=== PATIENT | female | born 1960 ===

== ENCOUNTER 2018-09-09 11:42 | Emergency (ER) | payer SELFPAY ==
--- OUTSIDE RECORDS SUMMARY | 2018-09-09 11:55 | XMS REPORT ---
:1960 [facility] Address [address] [place] [address] Care Team Providers Name Role Phone Unavailable Unavailable Unavailable Payers Payer Name Policy Type Policy Number Effective Date Expiration Date Problems This patient has no known problems. Allergies, Adverse Reactions, Alerts Allergy Allergy Status Severity Reaction(s) Onset Inactive Treating Comments Name Type Date Date Clinician No Known DA Active U 2018-04 Allergies 00:00:0 0 aspirin DA Active SV 2018-04 00:00:0 0 "BEE DA Active U 2018-04 STINGS" 00:00:0 0 Medications This patient has no known medications.
[2018-09-09] MEDS ORDERED: FAMOTIDINE 20 MG/2 ML VIAL IV ONE (12:20)
[2018-09-09] MEDS ORDERED: ONDANSETRON 4 MG/2 ML VIAL ONE (12:20)
[2018-09-09] MEDS ORDERED: NA CHLORIDE 0.9% 1,000 ML ONE (12:20)
[2018-09-09 12:30] LABS: Absolute Monocytes 1.3 K/uL (0.1-1.3); Absolute Neutrophil 9.5 K/uL (1.8-8.0); Eosinophils % 0.4 % (0-4.4); Hematocrit 45.1 % (36.0-45.0); Lymphocytes % 21.5 % (15.3-44.8); MPV 9.4 fL (7.6-11.3); Monocytes % 9.3 % (3.3-12.3); RBC Red Blood Cell Count 4.63 M/uL (3.86-4.86)
--- NOTE | 2018-09-09 12:36 | RAD REPORT ---
EXAM DESCRIPTION: RAD - Chest Single View - 09/09/2018 12:30 pm CLINICAL HISTORY: Left-sided chest pain COMPARISON: None. TECHNIQUE: AP portable chest image was obtained 1223 hours . FINDINGS: No peripheral mass or infiltrate. No failure or volume overload. Mild prominence of the in terstitial markings believed to be baseline. No mediastinal or hilar adenopathy suspected. Heart and vasculature are normal. No measurable pleural effusion and no pneumothorax. No acute bony abnormality seen. No acute aortic findings suspected. IMPRESSION: No acute cardiopulmonary process.
[2018-09-09 13:18] LABS: ALT/SGPT 22 U/L (12-78); AST/SGOT 17 U/L (15-37); Albumin 3.6 g/dL (3.4-5.0); Alkaline Phosphatase 121 U/L (45-117); BUN Blood Urea Nitrogen 9 mg/dL (7-18); Bicarbonate 27 mmol/L (21-32); Bilirubin Direct 0.2 mg/dL (0-0.2); Bilirubin Total 0.4 mg/dL (0.2-1.0); Glucose Level 104 mg/dL (74-106); Lipase 69 U/L (73-393); Magnesium 1.8 mg/dL (1.8-2.4); NT PRO-BNP 464 pg/mL (<125); Potassium 3.5 mmol/L (3.5-5.1); Sodium Level 144 mmol/L (136-145); Troponin (Emerg Dept Use Only) < 0.02 ng/mL (0.0-0.045)
[2018-09-09 13:37] LABS: Protime INR 0.97
[2018-09-09 14:38] LABS: Urine Blood TRACE (NEG); Urine Glucose NEGATIVE (NEG); Urine Protein NEGATIVE (NEG); Urine Specific Gravity 1.015 (1.005-1.030)
[2018-09-09 14:38] LABS: Urine Specific Gravity 1.015 (1.005-1.030)
--- NOTE | 2018-09-09 15:07 | RAD REPORT ---
EXAM DESCRIPTION: CT - Chest Abdomen Pelvis W Cont - 09/09/2018 2:38 pm CLINICAL HISTORY: Left-sided chest and abdomen pain, cough and congestion, prior splenectomy and cho lecystectomy COMPARISON: None. TECHNIQUE: Following dynamic enhancement using 100 milliliters nonionic IV contrast, axial imaging o f the chest, abdomen and pelvis was performed. Biphasic technique was utilized through the abdomen. Oral contrast was administered. All CT scans are performed using dose optimization technique as appropriate and may include automated exposure control or mA/KV adjustment according to patient size. FINDINGS: Lungs are clear of mass and infiltrate. No pleural effusion, pleural thickening or pneumot horax. No significant aortic or pulmonary arterial tree finding. Mediastinal and hilar regions show n o mass or abnormal lymphadenopathy. No chest wall mass or axillary lymphadenopathy. No acute or destr uctive rib lesion. No suspicious findings in the subcutaneous fatty tissues. Liver shows no suspicious findings. No pancreatic or peripancreatic abnormality identified. Gallbladd er is absent. No abnormal biliary tree dilatation. Splenectomy surgical changes are noted. There is a remnant or accessory splenic nodules present. Symmetric renal function is seen with no mass or hydro nephrosis. No adrenal abnormalities. Urinary bladder is mostly contracted limiting assessment. No bladder calculus. Uterus and ovaries talha w no suspicious findings. No dilated bowel loops or focal bowel wall thickening. Minimal left-sided colonic diverticulosis pres ent without diverticulitis. No acute GI process seen. Disc and bony degenerative changes are present. No acute or destructive process seen. No significant vascular findings. IMPRESSION: CT chest, abdomen and pelvis imaging shows no significant or suspicious finding.Full fin dings detailed in the body of the report.
[2018-09-09] MEDS ORDERED: CLOPIDOGREL 75 MG TABLET ONE (16:12)
[2018-09-09] MEDS ORDERED: ACETAMINOPHEN 500 MG TAB ONE (16:12)
--- NOTE | 2018-09-09 16:22 | ER ---
Nurse's Notes [facility] Name: Teressa Ya Age: 57 yrs Sex: Female : 1960 Arrival Date: 09/09/2018 Time: 11:46 Bed 3 Private MD: Diagnosis: Chest pain, unspecified;Diarrhea, unspecified;Hypertensive heart disease Presentation: 09/09 11:49 Presenting complaint: Patient states: left sided/midsternal aching/sharp chest pain sv that radiates down the left arm, SOB, left hand cramping, "feet on fire." fatigue, cough, congestion x 1 day. Transition of care: patient was not received from another setting of care. Onset of symptoms was September 08, 2018. Care prior to arrival: None. 11:49 Method Of Arrival: Wheelchair sv 11:49 Acuity: MARLENY 2 sv 11:51 Note Pt reports that her is in ICU right now and has C.diff, believes she may sv have it as well. 12:00 Risk Assessment: Do you want to hurt yourself or someone else? Patient reports no hb desire to harm self or others. Initial Sepsis Screen: Does the patient meet any 2 criteria? No. Patient's initial sepsis screen is negative. Does the patient have a suspected source of infection? No. Patient's initial sepsis screen is negative. Historical: - Allergies: 11:51 NSAIDS; sv - PMHx: 11:51 Lupus; Hypertension; sv - PSHx: 11:51 Spleenectomy; Cholecystectomy; ectopic ; sv - Immunization history:: Adult Immunizations up to date. - Social history:: Smoking status: Patient/guardian denies using tobacco. - Ebola Screening: : No symptoms or risks identified at this time. Screenin:00 Abuse screen: Denies threats or abuse. Denies injuries from another. Nutritional hb screening: No deficits noted. Tuberculosis screening: No symptoms or risk factors identified. Fall Risk None identified. Assessment: 12:00 General: Appears in no apparent distress. uncomfortable, Behavior is cooperative, hb anxious. Pain: Complains of pain in chest Pain radiates to left arm Pain currently is 10 out of 10 on a pain scale. Pain began 2-3 days ago. Neuro: Level of Consciousness is awake, alert, obeys commands, Oriented to person, place, time, situation. Cardiovascular: Heart tones S1 S2 present Capillary refill < 3 seconds Patient's skin is warm and dry. Respiratory: Airway is patent Respiratory effort is even, unlabored, Respiratory pattern is regular, symmetrical, Breath sounds are clear bilaterally. GI: No signs and/or symptoms were reported involving the gastrointestinal system. : No signs and/or symptoms were reported regarding the genitourinary system. EENT: No signs and/or symptoms were reported regarding the EENT system. Derm: Skin is intact, is healthy with good turgor. Musculoskeletal: No signs and/or symptoms reported regarding the musculoskeletal system. 13:00 Reassessment: Patient appears in no apparent distress at this time. No changes from hb previously documented assessment. Patient and/or family updated on plan of care and expected duration. Pain level reassessed. Patient is alert, oriented x 3, equal unlabored respirations, skin warm/dry/pink. 14:00 Reassessment: Patient appears in no apparent distress at this time. No changes from hb previously documented assessment. Patient and/or family updated on plan of care and expected duration. Pain level reassessed. Patient is alert, oriented x 3, equal unlabored respirations, skin warm/dry/pink. 15:00 Reassessment: Patient appears in no apparent distress at this time. No changes from hb previously documented assessment. Patient and/or family updated on plan of care and expected duration. Pain level reassessed. Patient is alert, oriented x 3, equal unlabored respirations, skin warm/dry/pink. 16:00 Reassessment: Patient appears in no apparent distress at this time. No changes from hb previously documented assessment. Patient and/or family updated on plan of care and expected duration. Pain level reassessed. Patient is alert, oriented x 3, equal unlabored respirations, skin warm/dry/pink. Vital Signs: 11:51 BP 166 / 88; Pulse 117; Resp 20; Temp 98.3(O); Pulse Ox 98% ; Weight 52.16 kg; Height 5 sv ft. 5 in. (165.10 cm); Pain 10/10; 13:00 BP 129 / 83; Pulse 98; Resp 18; Pulse Ox 97% on R/A; hb 14:00 BP 174 / 92; Pulse 81; Resp 18; Pulse Ox 99% on R/A; hb 15:00 BP 156 / 86; Pulse 80; Resp 16; Pulse Ox 99% on R/A; hb 11:51 Body Mass Index 19.14 (52.16 kg, 165.10 cm) sv ED Course: 11:46 Patient arrived in ED. tw3 11:50 Triage completed. sv 11:51 Arm band placed on. sv 11:57 Lan Vale PA is PHCP. cp 11:57 Cy Carolina MD is Attending Physician. cp 12:00 Patient has correct armband on for positive identification. Placed in gown. Bed in low hb position. Call light in reach. Side rails up X 1. child monitor on. Pulse ox on. NIBP on. 12:00 Patient maintains SpO2 saturation greater than 95% on room air. hb 12:14 Sulema Law, SUSANA is Primary Nurse. hb 12:20 Inserted saline lock: 20 gauge in right antecubital area, using aseptic technique. pc1 12:30 X-ray completed. Portable x-ray completed in exam room. Patient tolerated procedure mh1 well. 12:31 XRAY Chest (1 view) In Process Unspecified. EDMS 12:47 EKG done, by weld technician. reviewed by Lan SARGENT. at1 14:20 Urine collected: clean catch specimen, clear. dh3 14:38 CT Chest, Abdomen, Pelvis - W/Contrast: no oral contrast In Process Unspecified. EDMS 14:38 CT completed. Patient tolerated procedure well. Patient moved to CT. Patient moved back or from [place]. 16:20 Evelyn Virk MD is Hospitalizing Provider. cp 16:30 No provider procedures requiring assistance completed. IV discontinued, intact, hb bleeding controlled, No redness/swelling at site. Pressure dressing applied. 16:37 Jairo Araujo MD is Referral Physician. cp Administered Medications: 12:15 Drug: NS 0.9% 1000 ml Route: IV; Rate: 1 bolus; Site: right antecubital; hb 13:33 Follow up: Response: No adverse reaction; IV Status: Completed infusion hb 12:15 Drug: Zofran 4 mg Route: IVP; Site: right antecubital; hb 13:00 Follow up: Response: No adverse reaction hb 12:15 Drug: Pepcid 20 mg Route: IVP; Site: right antecubital; hb 13:30 Follow up: Response: No adverse reaction hb 14:44 Drug: NS 0.9% 1000 ml Route: IV; Rate: 100 ml/hr; Site: right antecubital; hb 16:07 Drug: Tylenol 1000 mg Route: PO; pc1 16:44 Follow up: Response: No adverse reaction ph 16:07 Drug: PlaVIX 75 mg Route: PO; pc1 16:44 Follow up: Response: No adverse reaction ph 16:43 Not Given (Left AMA): morphine 2 mg IVP once; if pain continues ph Outcome: 16:21 Decision to Hospitalize by Provider. cp 16:30 Discharged to home ambulatory, with family. hb 16:30 Condition: stable 16:30 Discharge instructions given to patient, family, Instructed on discharge instructions, follow up and referral plans. Demonstrated understanding of instructions, follow-up care, medications. 16:44 Patient left the ED. ph Signatures: Dispatcher [employer] EDMS Lucy Ha RN RN Jacqueline Blum mh1 Thuy Rao, end trimmer EKG [facility] Nicolle Lynn RN RN Lan Vale PA PA cp Baxter, Heather, RN RN Jean Marie Lopez, Jammie tw3 Yusra Casanova 3 Manas Luque pc1 Corrections: (The following items were deleted from the chart) 12:14 11:49 Presenting complaint: Patient states: left sided/midsternal aching/sharp chest sv pain, SOB, left hand cramping, "feet on fire." fatigue, cough, congestion x 1 day. sv
--- NOTE | 2018-09-09 16:22 | EDPHYS ---
Physician Documentation [facility] Name: Teressa Ya Age: 57 yrs Sex: Female : 1960 Arrival Date: 09/09/2018 Time: 11:46 Bed 3 Private MD: ED Physician Cy Carolina HPI: 09/09 12:07 This 57 yrs old Female presents to ER via Wheelchair with complaints of Chest Pain, Arm cp Pain. 12:08 The patient or guardian reports chest pain that is located primarily in the anterior cp chest wall, left. Onset: yesterday. The pain radiates to the left arm. The chest pain is described as aching, sharp. 12:10 The patient presents to the emergency department with nausea, that is moderate, cp vomiting, that is intermittent, diarrhea, that is intermittent, abdominal pain, of the abdomen diffusely, described as achy, and does not radiate, started 5 days ago. 12:10 Possible causes: sick contacts, by a significant other, hospitalized for c-dif. cp Historical: - Allergies: 11:51 NSAIDS; sv - PMHx: 11:51 Lupus; Hypertension; sv - PSHx: 11:51 Spleenectomy; Cholecystectomy; ectopic ; sv - Immunization history:: Adult Immunizations up to date. - Social history:: Smoking status: Patient/guardian denies using tobacco. - Ebola Screening: : No symptoms or risks identified at this time. ROS: 12:10 Constitutional: Negative for body aches, chills, fever, poor PO intake. cp 12:10 Eyes: Negative for injury, pain, redness, and discharge. cp 12:10 ENT: Negative for drainage from ear(s), ear pain, sore throat, difficulty swallowing, difficulty handling secretions. 12:10 Cardiovascular: Negative for chest pain, edema, palpitations. 12:10 Respiratory: Positive for cough, with no reported sputum, Negative for shortness of breath, wheezing. 12:10 Abdomen/GI: Positive for abdominal pain, nausea, vomiting, diarrhea, Negative for constipation, black/tarry stool, rectal bleeding. 12:10 Back: Negative for pain at rest, pain with movement, radiated pain. 12:10 : Negative for urinary symptoms. 12:10 Skin: Negative for cellulitis, rash. 12:10 Neuro: Negative for altered mental status, headache, numbness, weakness. 12:10 All other systems are negative. Exam: 12:10 ECG was reviewed by the Attending Physician. cp 12:15 Constitutional: The patient appears in no acute distress, alert, awake, cp non-diaphoretic, non-toxic, well developed, well nourished. 12:15 Head/Face: Normocephalic, atraumatic. Eyes: Pupils equal round and reactive to light, cp extra-ocular motions intact. Lids and lashes normal. Conjunctiva and sclera are non-icteric and not injected. Cornea within normal limits. Periorbital areas with no swelling, redness, or edema. ENT: Nares patent. No nasal discharge, no septal abnormalities noted. Tympanic membranes are normal and external auditory canals are clear. Oropharynx with no redness, swelling, or masses, exudates, or evidence of obstruction, uvula midline. Mucous membranes moist. Neck: Trachea midline, no thyromegaly or masses palpated, and no cervical lymphadenopathy. Supple, full range of motion without nuchal rigidity, or vertebral point tenderness. No Meningismus. Chest/axilla: Normal chest wall appearance and motion. Nontender with no deformity. No lesions are appreciated. 12:15 Cardiovascular: Rate: tachycardic, Rhythm: regular, Heart sounds: murmur, not appreciated, Edema: is not appreciated, JVD: is not appreciated. 12:15 Respiratory: the patient does not display signs of respiratory distress, Respirations: normal, no use of accessory muscles, no retractions, no splinting, no tachypnea, labored breathing, is not present, Breath sounds: are clear throughout, no decreased breath sounds, no stridor, no wheezing. 12:15 Abdomen/GI: Inspection: abdomen appears normal, Bowel sounds: active, all quadrants, Palpation: soft, in all quadrants, mild abdominal tenderness, in all quadrants, rebound tenderness, is not appreciated, involuntary guarding, is not appreciated. 12:15 Back: pain, is absent, ROM is normal. 12:15 Skin: cellulitis, is not appreciated, no rash present. 12:15 Neuro: Orientation: to person, place \T\ time. Mentation: is normal, Cerebellar function: is grossly normal, Motor: moves all fours, strength is normal, Sensation: is normal. Vital Signs: 11:51 BP 166 / 88; Pulse 117; Resp 20; Temp 98.3(O); Pulse Ox 98% ; Weight 52.16 kg; Height 5 sv ft. 5 in. (165.10 cm); Pain 10/10; 13:00 BP 129 / 83; Pulse 98; Resp 18; Pulse Ox 97% on R/A; hb 14:00 BP 174 / 92; Pulse 81; Resp 18; Pulse Ox 99% on R/A; hb 15:00 BP 156 / 86; Pulse 80; Resp 16; Pulse Ox 99% on R/A; hb 11:51 Body Mass Index 19.14 (52.16 kg, 165.10 cm) sv MDM: 12:02 Patient medically screened. cp 16:19 The patient was not given aspirin in the Emergency Department. Not indicated due to cp patient's past medical history. Data reviewed: vital signs, nurses notes, lab test result(s), EKG, radiologic studies, CT scan, plain films. 16:35 Refusal of service: The patient/guardian displays adequate decision making capability cp and despite a detailed discussion of alternatives, benefits, risks, and consequences refuses: Admission to the hospital for further work-up and treatment. 16:35 ED course: Patient reports she is unable to contact teenage daughter and is worried cp about her whereabouts. Patient refuses admission at this time for chest pain. 09/09 12:05 Order name: Basic Metabolic Panel; Complete Time: 14:23 cp 09/09 14:24 Interpretation: Normal except: CL 111; GFR 73; CA 8.4. cp 09/09 12:05 Order name: CBC with Diff; Complete Time: 12:55 cp 09/09 12:55 Interpretation: Normal except: WBC 14.0; HGB 15.5; HCT 45.1; NEUT A 9.5. cp 09/09 12:05 Order name: LFT's; Complete Time: 14:23 cp 09/09 12:05 Order name: Magnesium; Complete Time: 14:23 cp 09/09 12:05 Order name: NT PRO-BNP; Complete Time: 14:23 cp 09/09 12:05 Order name: PT-INR; Complete Time: 14:23 cp 09/09 12:05 Order name: Troponin (emerg Dept Use Only); Complete Time: 14:23 cp 09/09 12:05 Order name: Lipase; Complete Time: 14:23 cp 09/09 12:05 Order name: Blood Culture Adult (2) cp 09/09 12:05 Order name: Procalcitonin; Complete Time: 14:23 cp 09/09 12:05 Order name: Influenza Screen (a \T\ B); Complete Time: 12:55 cp 09/09 12:05 Order name: Lactate; Complete Time: 14:23 cp 09/09 12:43 Order name: D-Dimer; Complete Time: 14:23 EDMS 09/09 12:05 Order name: XRAY Chest (1 view); Complete Time: 12:55 cp 09/09 14:25 Order name: CT Chest, Abdomen, Pelvis - W/Contrast: no oral contrast; Complete Time: cp 15:33 09/09 14:29 Order name: Urine Dipstick--Ancillary (enter results); Complete Time: 15:33 kj1 09/09 14:31 Order name: Urine --Ancillary (enter results); Complete Time: 15:33 kj1 09/09 11:58 Order name: EKG; Complete Time: 11:58 sv 09/09 11:58 Order name: EKG - Nurse/Tech; Complete Time: 12:15 sv 09/09 12:05 Order name: Cardiac monitoring; Complete Time: 12:16 cp 09/09 12:05 Order name: IV Saline Lock; Complete Time: 12:16 cp 09/09 12:05 Order name: Labs collected and sent; Complete Time: 12:15 cp 09/09 12:05 Order name: O2 Per Protocol; Complete Time: 12:15 cp 09/09 12:05 Order name: O2 Sat Monitoring; Complete Time: 12:15 cp 09/09 12:05 Order name: Urine Dipstick-Ancillary (obtain specimen); Complete Time: 14:37 cp 09/09 12:05 Order name: Urine Test (obtain specimen); Complete Time: 14:37 cp 09/09 12:45 Order name: Labs - recollect needed; Complete Time: 13:10 bd 09/09 16:03 Order name: EKG; Complete Time: 16:03 cp 09/09 16:03 Order name: EKG - Nurse/Tech cp EC:10 Rate is 102 beats/min. Rhythm is regular. [place] interval is normal. QRS interval is cp normal. QT interval is normal. T waves are Inverted in lead V2. Interpreted by me. Reviewed by me. Administered Medications: 12:15 Drug: NS 0.9% 1000 ml Route: IV; Rate: 1 bolus; Site: right antecubital; hb 13:33 Follow up: Response: No adverse reaction; IV Status: Completed infusion hb 12:15 Drug: Zofran 4 mg Route: IVP; Site: right antecubital; hb 13:00 Follow up: Response: No adverse reaction hb 12:15 Drug: Pepcid 20 mg Route: IVP; Site: right antecubital; hb 13:30 Follow up: Response: No adverse reaction hb 14:44 Drug: NS 0.9% 1000 ml Route: IV; Rate: 100 ml/hr; Site: right antecubital; hb 16:07 Drug: Tylenol 1000 mg Route: PO; pc1 16:44 Follow up: Response: No adverse reaction ph 16:07 Drug: PlaVIX 75 mg Route: PO; pc1 16:44 Follow up: Response: No adverse reaction ph 16:43 Not Given (Left AMA): morphine 2 mg IVP once; if pain continues ph Disposition: 09/10 06:53 Co-signature as Attending Physician, Cy Carolina MD I agree with the assessment and dc plan of care. Disposition: 09/09/18 16:38 Patient has left against medical advice. Impression: Chest pain, unspecified, Diarrhea, unspecified, Hypertensive heart disease. - Patients states they are going to Home. - Condition is Stable. - Discharge Instructions: Nonspecific Chest Pain, Diarrhea, Adult, How to Take Your Blood Pressure, [id number], Managing Your Hypertension. Follow up: Jairo Araujo MD; When: Tomorrow; Reason: chest pain. - Problem is new. - Symptoms have improved. Signatures: Dispatcher [employer] EDMS Natali Martínez Stephanie, RN RN sv Hall, Patricia, RN RN ph Lan Vale PA PA cp Baxter, Heather, RN RN hb Appiah, William, MD MD wa Cantu, Patrick pc1 Corrections: (The following items were deleted from the chart) 09/09 12:43 12:13 D-DIMER+COAG.LAB.BRZ ordered. EDMS EDMS 14:24 14:23 Normal except: CL 111; GFR 73. cp cp 15:41 15:39 Abdomen Pelvis W Con+CT.RAD.BRZ ordered. EDMS EDMS 16:37 16:21 Hospitalization Ordered by Evelyn Virk MD for Observation. Preliminary cp diagnosis is Chest pain, unspecified; Diarrhea, unspecified. Bed requested for Telemetry/MedSurg (observation). Status is Observation. Condition is Stable. Problem is new. Symptoms have improved. UTI on Admission? No. cp 16:44 16:38 09/09/2018 16:38 Patients has left against medical advice. Impression: Chest ph pain, unspecified; Diarrhea, unspecified; Hypertensive heart disease. Patient states they are going to Home. Condition is Stable. Follow up: Jairo Araujo; When: Tomorrow; Reason: chest pain. Problem is new. Symptoms have improved. cp
[2018-09-09] MEDS ORDERED: NA CHLORIDE 0.9% 1,000 ML IV SCH (17:00)
--- NOTE | 2018-09-09 20:19 | EKG ---
Test Date: 2018-09-09 Test Time: 16:09:15 Pinion Staker: BOBBY MEASUREMENT RESULTS: Intervals: Rate: 71 NC: 146 QRSD: 68 QT: 400 QTc: 434 [place]: P: 71 NC: 146 QRS: 69 T: 58 INTERPRETIVE STATEMENTS: Normal sinus rhythm Right atrial enlargement Borderline ECG Compared to ECG 09/09/2018 12:04:40 Sinus tachycardia no longer present T-wave abnormality no longer present Electronically Signed On 09-09-18 20:18:27 CDT by Jairo Araujo
--- NOTE | 2018-09-09 20:20 | EKG ---
Test Date: 2018-09-09 Test Time: 12:04:40 Suction Worker: HUSEYIN MEASUREMENT RESULTS: Intervals: Rate: 102 FL: 142 QRSD: 58 QT: 360 QTc: 469 [place]: P: 56 FL: 142 QRS: 46 T: 55 INTERPRETIVE STATEMENTS: Sinus tachycardia Right atrial enlargement Nonspecific T wave abnormality Abnormal ECG No previous ECG available for comparison Electronically Signed On 09-09-18 20:20:07 CDT by Jairo Araujo
== END 2018-09-09 16:44 | disposition left against medical advice (07) ==
LOC: ER 11:42
DX: R07.9 Chest pain, unspecified (principal); R19.7 Diarrhea, unspecified; I11.9 Hypertensive heart disease without heart failure; I10 Essential (primary) hypertension; Z88.6 Allergy status to analgesic agent
CPT/HCPCS: 36415; 71045; 71260; 74177; 80048; 80076; 81003; 81025; 83605; 83690; 83735; 83880; 84145; 84484; 85025; 85379; 85610; 87040; 87804; 93005; 96361; 96374; 96375; 99285; J2405; J7030; Q9967

== ENCOUNTER 2018-09-09 18:51 | Observation (INO) | payer SELFPAY ==
--- OUTSIDE RECORDS SUMMARY | 2018-09-09 18:52 | XMS REPORT ---
:1960 [facility] Address [address] [place] [address] [address]. Dela [address] [place] [address] Care Team Providers Name Role Phone Unavailable [...]
[2018-09-09 22:18] LABS: Absolute Lymphocytes (CBC) 3.8 K/uL (0.7-4.9); Basophils % 1.5 % (0-1.3); Hematocrit 41.1 % (36.0-45.0); Lymphocytes % 37.6 % (15.3-44.8); MPV 9.3 fL (7.6-11.3); Monocytes % 10.3 % (3.3-12.3); RBC Red Blood Cell Count 4.17 M/uL (3.86-4.86)
[2018-09-09] MEDS ORDERED: NA CHLORIDE 0.9% 1,000 ML ONE (22:18)
[2018-09-09] MEDS ORDERED: METOPROLOL TAR 25 MG TAB ONE (22:18)
[2018-09-09] MEDS ORDERED: MORPHINE 2 MG/ML SYR ONE (22:18)
[2018-09-09] MEDS ORDERED: NA CHLORIDE 0.9% 500 ML ONE (22:18)
[2018-09-09 22:19] LABS: Protime INR 0.95
[2018-09-09 22:32] LABS: ALT/SGPT 23 U/L (12-78); AST/SGOT 20 U/L (15-37); Albumin 3.9 g/dL (3.4-5.0); Alkaline Phosphatase 125 U/L (45-117); BUN Blood Urea Nitrogen 10 mg/dL (7-18); Bicarbonate 30 mmol/L (21-32); Bilirubin Direct 0.1 mg/dL (0-0.2); Bilirubin Total 0.4 mg/dL (0.2-1.0); Glucose Level 97 mg/dL (74-106); Magnesium 1.9 mg/dL (1.8-2.4); NT PRO-BNP 438 pg/mL (<125); Potassium 3.8 mmol/L (3.5-5.1); Protein, Total 7.3 g/dL (6.4-8.2); Sodium Level 146 mmol/L (136-145); Troponin (Emerg Dept Use Only) < 0.02 ng/mL (0.0-0.045)
--- NOTE | 2018-09-09 23:13 | EDPHYS ---
Physician Documentation [facility] Name: Teressa Ya Age: 57 yrs Sex: Female : 1960 Arrival Date: 09/09/2018 Time: 19:11 Bed 13 Private MD: ED Physician Jaya Desai HPI: 09/09 21:05 This 57 yrs old Female presents to ER via Ambulatory with complaints of Chest Pain, Arm cp Pain. 21:05 The patient or guardian reports chest pain that is located primarily in the anterior cp chest wall, left. 21:05 Onset: yesterday. The pain radiates to the left arm. The chest pain is described as cp aching, sharp. Patient returns to Ed after leaving earlier today AMA with continued complaints of chest pain. 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 - Social history:: Smoking status: Patient uses tobacco products, smokes one-half pack cigarettes per day. - Ebola Screening: : No symptoms or risks identified at this time. ROS: 21:12 Constitutional: Negative for body aches, chills, fever, poor PO intake. cp 21:12 Eyes: Negative for injury, pain, redness, and discharge. cp 21:12 ENT: Negative for drainage from ear(s), ear pain, sore throat, difficulty swallowing, difficulty handling secretions. 21:12 Cardiovascular: Positive for chest pain, of the anterior aspect of left upper chest, Negative for edema, palpitations. 21:12 Respiratory: Positive for cough, with no reported sputum, shortness of breath, Negative for wheezing. 21:12 Abdomen/GI: Positive for vomiting, diarrhea, Negative for constipation, black/tarry stool. 21:12 Back: Negative for pain at rest, pain with movement, radiated pain. 21:12 : Negative for urinary symptoms. 21:12 Skin: Negative for cellulitis, rash. 21:12 Neuro: Negative for altered mental status, headache, numbness, syncope, weakness. 21:12 All other systems are negative. Exam: 21:20 Constitutional: The patient appears in no acute distress, alert, awake, cp non-diaphoretic, non-toxic, well developed, well nourished. 21:20 Head/Face: Normocephalic, atraumatic. cp 21:20 Eyes: Periorbital structures: appear normal, Conjunctiva: normal, no exudate, no injection, Sclera: no appreciated abnormality, Lids and lashes: appear normal, bilaterally. 21:20 ENT: External ear(s): are unremarkable, Nose: is normal, Mouth: is normal, Posterior pharynx: is normal, airway is patent, no erythema, no exudate. 21:20 Neck: ROM/movement: is normal, is supple, without pain, no range of motions limitations, no nuchal rigidity. 21:20 Chest/axilla: Inspection: normal, Palpation: is normal, no crepitus, no tenderness. 21:20 Cardiovascular: Rate: normal, Rhythm: regular, Pulses: Pulses are 2+ in right radial artery and left radial artery. Edema: is not appreciated, JVD: is not appreciated. 21:20 Respiratory: the patient does not display signs of respiratory distress, Respirations: normal, no use of accessory muscles, no retractions, no splinting, no tachypnea, labored breathing, is not present, Breath sounds: are clear throughout, no decreased breath sounds, no stridor, no wheezing. 21:20 Abdomen/GI: Inspection: abdomen appears normal, Bowel sounds: active, all quadrants, Palpation: abdomen is soft and non-tender, in all quadrants, rebound tenderness, is not appreciated, voluntary guarding, is not appreciated, involuntary guarding, is not appreciated. 21:20 Back: pain, is absent, ROM is normal. 21:20 Musculoskeletal/extremity: Exam is negative for decreased range of motion, deformity, injury. 21:20 Skin: no rash present. 21:20 Neuro: Orientation: to person, place \T\ time. Mentation: is normal, Cerebellar function: is grossly normal, Motor: moves all fours, strength is normal, Sensation: is normal, Gait: is steady. 23:13 ECG was reviewed by the Attending Physician. cp Vital Signs: 19:23 BP 176 / 90; Pulse 91; Resp 18; Temp 98(O); Pulse Ox 100% on R/A; Weight 52.16 kg; lp1 Height 5 ft. 5 in. (165.10 cm); Pain 8/10; 21:45 BP 127 / 99; Pulse 68; Resp 21; Pulse Ox 99% ; aj1 22:49 BP 179 / 80; Pulse 85; Resp 18; Pulse Ox 99% on R/A; aj1 23:03 BP 166 / 89; Pulse 70; Resp 18; Pulse Ox 96% on R/A; Pain 5/10; lp1 09/10 01:12 BP 166 / 79; Pulse 67; Resp 23; Temp 98.4(O); Pulse Ox 98% on R/A; lp1 09/09 19:23 Body Mass Index 19.14 (52.16 kg, 165.10 cm) lp1 MDM: 09/09 21:04 Patient medically screened. cp 21:15 Differential diagnosis: acute myocardial infarction, acute pericarditis, chest wall cp pain, pleurisy, pneumonia, pneumothorax, stable angina, unstable angina. 23:10 Data reviewed: vital signs, nurses notes, lab test result(s), EKG, I have discussed the cp patient's presentation/case with the attending Emergency Department Physician; and as a result, I will admit patient. Test interpretation: by ED physician or midlevel provider: ECG. Physician consultation: Chema Matamoros MD was called at 23:05, was contacted at 23:05, regarding admission, to the telemetry unit. patient's condition. 23:10 The patient was not given aspirin in the Emergency Department. Not indicated due to cp patient's past medical history. 09/09 21:04 Order name: Basic Metabolic Panel; Complete Time: 22:39 cp 09/09 22:39 Interpretation: Normal except: NA 146; CL 110; GFR 70. cp 09/09 21:04 Order name: CBC with Diff; Complete Time: 22:21 cp 09/09 22:22 Interpretation: Normal except: WBC 10.1; BASO% 1.5. cp 09/09 21:04 Order name: LFT's; Complete Time: 22:39 cp 09/09 22:39 Interpretation: Normal except: ALK 125. cp 09/09 21:04 Order name: Magnesium; Complete Time: 22:39 cp 09/09 21:04 Order name: NT PRO-BNP; Complete Time: 22:39 cp 09/09 22:39 Interpretation: Abnormal: NT PRO-BNP 438. cp 09/09 21:04 Order name: PT-INR; Complete Time: 22:21 cp 09/09 21:04 Order name: Troponin (emerg Dept Use Only); Complete Time: 22:39 cp 09/09 22:39 Interpretation: TROPED < 0.02; Reviewed. 09/10 00:21 Order name: Echo with Doppler [facility] 09/10 00:21 Order name: Lipid Profile [facility] 09/10 00:21 Order name: Lipid Profile [facility] 09/10 00:21 Order name: Troponin I [facility] 09/10 00:21 Order name: Troponin I [facility] 09/09 20:13 Order name: EKG; Complete Time: 20:14 aa 09/09 20:13 Order name: EKG - Nurse/Tech; Complete Time: 22:02 [facility] 09/09 21:04 Order name: Cardiac monitoring; Complete Time: 22:13 cp 09/09 21:04 Order name: IV Saline Lock; Complete Time: 22:13 09/09 21:04 Order name: Labs collected and sent; Complete Time: 22:13 09/09 21:04 Order name: O2 Per Protocol; Complete Time: 22:13 cp 09/09 21:04 Order name: O2 Sat Monitoring; Complete Time: 22:13 09/10 00:21 Order name: Heart Healthy EDW[facility] EC:13 Rate is 73 beats/min. Rhythm is regular. NH interval is normal. QRS interval is normal. cp QT interval is normal. T waves are Inverted in leads V2, V3. Interpreted by me. Reviewed by me. Administered Medications: 22:12 Drug: morphine 2 mg Route: IVP; Site: right antecubital; aj1 22:55 Follow up: Response: Pain is decreased lp1 22:12 Drug: Metoprolol 25 mg Route: PO; aj1 22:55 Follow up: Response: No adverse reaction lp1 22:12 Drug: NS 0.9% 500 ml Route: IV; Rate: bolus; Site: right antecubital; aj1 22:54 Follow up: IV Status: Completed infusion; IV Intake: 500ml lp1 22:55 Drug: NS 0.9% 1000 ml Route: IV; Rate: 125 ml/hr; Site: left antecubital; lp1 09/10 01:19 Follow up: IV Status: IV converted to saline lock lp1 09/09 23:29 Drug: PlaVIX 75 mg Route: PO; lp1 09/10 01:18 Follow up: Response: No adverse reaction lp1 01:19 Not Given (No complaint of nausea): Zofran 4 mg IVP once; over 2 minutes lp1 01:19 Not Given (Patient requesting Tylenol): morphine 2 mg IVP once lp1 Disposition: 05:16 Co-signature as Attending Physician, Jaya Desai MD. Disposition: 09/09/18 23:12 Hospitalization ordered by Chema Matamoros for Observation. Preliminary diagnosis is Chest pain, unspecified. - Bed requested for Telemetry/MedSurg (observation). - Status is Observation. lp1 - Condition is Stable. - Problem is new. - Symptoms have improved. UTI on Admission? No Signatures: Dispatcher [employer] [facility] Loretta Salcedo RN RN aj1 Danitza Santa RN RN aa1 Ina Harvey RN RN lp1 Lan Vale PA PA Jaya Desai MD MD Corrections: (The following items were deleted from the chart) 09/09 22:02 21:04 Chest Single View+RAD.RAD.BRZ ordered. [facility] 09/10 00:55 09/09 23:12 Hospitalization Ordered by Chema Matamoros MD for Observation. Preliminary aa1 diagnosis is Chest pain, unspecified. Bed requested for Telemetry/MedSurg (observation). Status is Observation. Condition is Stable. Problem is new. Symptoms have improved. UTI on Admission? No. cp 09/10 01:24 00:55 09/09/2018 23:12 Hospitalization Ordered by Chema Matamoros MD for Observation. lp1 Preliminary diagnosis is Chest pain, unspecified. Bed requested for Telemetry/MedSurg (observation). Status is Observation. Condition is Stable. Problem is new. Symptoms have improved. UTI on Admission? No. aa1
--- NOTE | 2018-09-09 23:13 | ER ---
Nurse's Notes [facility] Name: Teressa Ya Age: 57 yrs Sex: Female : 1960 Arrival Date: 09/09/2018 Time: 19:11 Bed 13 Private MD: Diagnosis: Chest pain, unspecified Presentation: 09/09 19:19 Presenting complaint: Patient states: States she was here earlier and was going to be lp1 admitted, but she had to leave and go find her daughter since she was not answering her phone; States continued chest pain radiating to left arm that is achy and gets sharp, vomiting, diarrhea x 6 days. Transition of care: patient was not received from another setting of care. Onset of symptoms was September 09, 2018. Risk Assessment: Do you want to hurt yourself or someone else? Patient reports no desire to harm self or others. Initial Sepsis Screen: Does the patient meet any 2 criteria? No. Patient's initial sepsis screen is negative. Does the patient have a suspected source of infection? No. Patient's initial sepsis screen is negative. Care prior to arrival: None. 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 - Social history:: Smoking status: Patient uses tobacco products, smokes one-half pack cigarettes per day. - Ebola Screening: : No symptoms or risks identified at this time. Screenin:15 Abuse screen: Denies threats or abuse. Denies injuries from another. Nutritional aj1 screening: No deficits noted. Tuberculosis screening: No symptoms or risk factors identified. 23:06 Fall Risk None identified. lp1 Assessment: 21:15 General: Appears in no apparent distress. comfortable, Behavior is calm, cooperative, aj1 appropriate for age. Pain: Complains of pain in anterior aspect of left upper chest and mid-sternal area Pain radiates to left arm and neck Pain currently is 9 out of 10 on a pain scale. Quality of pain is described as sharp, Pain began suddenly, Is intermittent. Neuro: Level of Consciousness is awake, alert, obeys commands, Oriented to person, place, time, situation, Speech is normal, Facial symmetry appears normal. Cardiovascular: Reports chest pain, palpitations, shortness of breath, Heart tones S1 S2 present Patient's skin is warm and dry. Rhythm is regular. Respiratory: Airway is patent Respiratory effort is even, unlabored, Respiratory pattern is regular, symmetrical, Breath sounds are clear bilaterally. GI: No signs and/or symptoms were reported involving the gastrointestinal system. : No signs and/or symptoms were reported regarding the genitourinary system. EENT: No signs and/or symptoms were reported regarding the EENT system. Derm: No signs and/or symptoms reported regarding the dermatologic system. Skin is pink, warm \T\ dry. normal. Musculoskeletal: No signs and/or symptoms reported regarding the musculoskeletal system. Circulation, motion, and sensation intact. 22:15 Reassessment: Patient and/or family updated on plan of care and expected duration. Pain aj1 level reassessed. Patient is alert, oriented x 3, equal unlabored respirations, skin warm/dry/pink. Patient states symptoms have improved. 23:04 Reassessment: Patient appears in no apparent distress at this time. Patient is alert, lp1 oriented x 3, equal unlabored respirations, skin warm/dry/pink. 09/10 01:00 Reassessment: Patient aware of pending admission; Complaint of headache, requesting lp1 Tyelnol. Vital Signs: 09/09 19:23 BP 176 / 90; Pulse 91; Resp 18; Temp 98(O); Pulse Ox 100% on R/A; Weight 52.16 kg; lp1 Height 5 ft. 5 in. (165.10 cm); Pain 8/10; 21:45 BP 127 / 99; Pulse 68; Resp 21; Pulse Ox 99% ; aj1 22:49 BP 179 / 80; Pulse 85; Resp 18; Pulse Ox 99% on R/A; aj1 23:03 BP 166 / 89; Pulse 70; Resp 18; Pulse Ox 96% on R/A; Pain 5/10; lp1 09/10 01:12 BP 166 / 79; Pulse 67; Resp 23; Temp 98.4(O); Pulse Ox 98% on R/A; lp1 09/09 19:23 Body Mass Index 19.14 (52.16 kg, 165.10 cm) lp1 ED Course: 09/09 19:11 Patient arrived in ED. es 19:21 Triage completed. lp1 19:21 Arm band placed on left wrist. lp1 19:23 Patient maintains SpO2 saturation greater than 95% on room air. lp1 20:16 Patient's name was called from ER lobby. No response. lp1 21:04 Lan Vale PA is PHCP. cp 21:04 Jaya Desai MD is Attending Physician. cp 21:15 Patient has correct armband on for positive identification. monitor worker on. Pulse aj1 ox on. NIBP on. 21:15 No provider procedures requiring assistance completed. aj1 21:30 Inserted saline lock: 20 gauge in left antecubital area, using aseptic technique. Blood oe collected. 22:02 Loretta Salcedo RN is Primary Nurse. aj1 22:45 Report given to SUSANA Buckley. aj1 23:11 Chema Matamoros MD is Hospitalizing Provider. 09/10 00:58 Patient admitted, IV remains in place. lp1 Administered Medications: 09/09 22:12 Drug: morphine 2 mg Route: IVP; Site: right antecubital; aj1 22:55 Follow up: Response: Pain is decreased lp1 22:12 Drug: Metoprolol 25 mg Route: PO; aj1 22:55 Follow up: Response: No adverse reaction lp1 22:12 Drug: NS 0.9% 500 ml Route: IV; Rate: bolus; Site: right antecubital; aj1 22:54 Follow up: IV Status: Completed infusion; IV Intake: 500ml lp1 22:55 Drug: NS 0.9% 1000 ml Route: IV; Rate: 125 ml/hr; Site: left antecubital; lp1 09/10 01:19 Follow up: IV Status: IV converted to saline lock lp1 09/09 23:29 Drug: PlaVIX 75 mg Route: PO; lp1 09/10 01:18 Follow up: Response: No adverse reaction lp1 01:19 Not Given (No complaint of nausea): Zofran 4 mg IVP once; over 2 minutes lp1 01:19 Not Given (Patient requesting Tylenol): morphine 2 mg IVP once lp1 Intake: 09/09 22:54 IV: 500ml; Total: 500ml. lp1 Outcome: 23:12 Decision to Hospitalize by Provider. cp 09/10 00:58 Condition: stable lp1 Instructed on the need for admit. 01:11 Admitted to Tele via wheelchair, room 416, with chart, Report called to matias Bruno RN 01:24 Patient left the ED. lp1 Signatures: Loretta Salcedo, RN RN aj1 Dalia Bermudez Laura RN RN lp1 Lan Vale, ROSETTA PA cp Monroe Gaspar Corrections: (The following items were deleted from the chart) 09/09 23:01 20:45 BP 164 / 91; Pulse 91bpm; Resp 18bpm; Pulse Ox 100%; aj1 aj1
[2018-09-09] MEDS ORDERED: CLOPIDOGREL 75 MG TABLET ONE (23:37)
[2018-09-10] MEDS ORDERED: ACETAMINOPHEN 500 MG TAB PO PRN (00:16)
[2018-09-10] MEDS ORDERED: ALPRAZOLAM 0.25 MG TABLET PO PRN (00:16)
[2018-09-10] MEDS ORDERED: MORPHINE 4 MG/ML SYR IV PRN (00:16)
--- NOTE | 2018-09-10 05:59 | EKG ---
Test Date: 2018-09-09 Test Time: 23:02:07 [employer]: MELISA MEASUREMENT RESULTS: Intervals: Rate: 73 WA: 152 QRSD: 74 QT: 398 QTc: 438 [place]: P: 64 WA: 152 QRS: 34 T: 51 INTERPRETIVE STATEMENTS: Normal sinus rhythm Bi atrial abnormality Abnormal ECG Compared to ECG 09/09/2018 16:09:15 no significant change from previous ECG Electronically Signed On 09-10-18 05:58:52 CDT by Jairo Araujo
[2018-09-10] MEDS: METOPROLOL TAR 50 MG TAB PO SCH ×2 (06:00→13:14)
[2018-09-10] MEDS ORDERED: LORazepam 2 MG/ML VIAL IV ONE (06:16)
[2018-09-10] MEDS ORDERED: INFLUENZA VACCINE (for 3y+) 0.5 ML DOSE IMVAC ONE (08:00)
[2018-09-10 08:41] LABS: Urine Appearance CLEAR; Urine Bilirubin NEGATIVE (NEG); Urine Blood NEGATIVE (NEG); Urine Color YELLOW; Urine Glucose NEGATIVE (NEG); Urine Protein NEGATIVE (NEG); Urine Specific Gravity 1.015 (1.005-1.030); Urine Urobilinogen 0.2 mg/dL (0.2-1.0); Urine pH 7.5 (5.0-7.0)
[2018-09-10 08:42] LABS: Urine Microscopic Reflex NO UMIC
[2018-09-10] MEDS ORDERED: REGADENOSON 0.4 MG/5 ML SYR IV ONE (08:50)
[2018-09-10] MEDS ORDERED: ENOXAPARIN 40 MG/0.4 ML SQ SCH (09:00)
[2018-09-10] MEDS ORDERED: ASPIRIN EC 81 MG TAB PO SCH (09:00)
--- NOTE | 2018-09-10 09:57 | P.HP ---
Certification for Inpatient Patient admitted to: Observation With expected LOS: <2 Midnights Patient will require the following post-hospital care: None Practitioner: I am a practitioner with admitting privileges, knowledge of patient current condition, hospital course, and medical plan of care. Services: Services provided to patient in accordance with Admission requirements found in Title 42 Section 412.3 of the Code of Federal Regulations Patient History Date of Service: 09/10/18 Reason for admission: CP r/o ACS History of Present Illness: Patient is a 57yo who was admitted to the hospital with chest discomfort. Patient came into the ER earlier in the day with similar complaints. However, she decided to home so she came back to the hospital when she took care of her personal issues. Patient came to the hospital with chest discomfort. Patient was also lightheaded. Her pain radiated to her left side. These have a lot of stress with family member in hospital. This has caused some anxiety issues as well. This is pretty severe so she will be admitted for further workup. Allergies NSAIDS (Non-Steroidal Anti-Inflamma Allergy (Unknown, Verified 09/10/18 06:19) Itching/Hives/Rash Home Medications: Amitriptyline HCl 100 mg PO BEDTIME 09/10/18 - Past Medical/Surgical History Has patient received pneumonia vaccine in the past: No Diabetic: No -: HTN -: DEPRESSION -: RESTLESS LEG SYNDROME -: RAYNAUD'S DISEASE -: PERIPHERAL NEUROPATHY -: ECTOPIC -: CHOLECYSTECTOMY -: SPLEENECTOMY -: TUBAL LIGATION - Family History Father Family History: Reviewed- Non-Contributory - Social History Smoking Status: Current every day smoker Alcohol use: No CD- Drugs: No Caffeine use: Yes Place of Residence: Home Review of Systems 10-point ROS is otherwise unremarkable Physical Examination - Vital Signs Temperature: 98.5 F Blood Pressure: 177/81 Pulse: 83 Respirations: 16 Pulse Ox (%): 95 - Physical Exam General: Alert, In no apparent distress, Oriented x3 HEENT: Atraumatic, PERRLA, Mucous membr. moist/pink, EOMI, Sclerae nonicteric Neck: Supple, 2+ carotid pulse no bruit, No LAD, Without JVD or thyroid abnormality Respiratory: Clear to auscultation bilaterally, Normal air movement Cardiovascular: Regular rate/rhythm, Normal S1 S2 Gastrointestinal: Normal bowel sounds, Soft and benign, Non-distended, No tenderness, No rebound, No guarding Musculoskeletal: No clubbing, No swelling, No tenderness Integumentary: No rashes Neurological: Normal gait, Normal speech, Normal strength at 5/5 x4 extr, Normal tone, Sensation intact, Cranial nerves 3-12 intact, Normal affect Lymphatics: No axilla or inguinal lymphadenopathy - Studies Laboratory Data (last 24 hrs) 09/10/18 00:16: Triglycerides 131, Cholesterol 191, HDL Cholesterol 61 H, Cholesterol/HDL Ratio 3.13 09/09/18 21:54: PT 11.2, INR 0.95 09/09/18 21:54: WBC 10.1 D, Hgb 13.7, Hct 41.1, Plt Count 274 09/09/18 21:54: Sodium 146 H, Potassium 3.8, BUN 10, Creatinine 0.84, Glucose 97 , Magnesium 1.9, Total Bilirubin 0.4, AST 20, ALT 23, Alkaline Phosphatase 125 H Assessment & Plan - Problems (Diagnosis) (1) Chest pain, rule out acute myocardial infarction Current Visit: Yes Status: Acute (2) Anxiety disorder Current Visit: Yes Status: Acute (3) Depression Current Visit: Yes Status: Acute (4) Raynaud phenomenon Current Visit: Yes Status: Acute - Plan 1. Serial troponins and EKG 2. Hold cardiology consultation pending stress test 3. Echocardiogram and stress test 4. Anti-platelet therapy, anti coagulation, beta-jossie, statin, and O2 as needed 5. IV morphine for pain 6. Nitro p.r.n. Discharge Plan: Home Plan to discharge in: 24 Hours - Advance Directives Does patient have a Living Will: No Does patient have a Durable POA for Healthcare: No - Code Status/Comfort Care Code Status Assessed: Yes Code Status: Full Code Critical Care: No Time Spent Managing PTS Care (In Minutes): 40
--- NOTE | 2018-09-10 11:20 | ECHO ---
HEIGHT: 5 ft 5 in WEIGHT: 112 lb 3.2 oz DATE OF STUDY: 09/10/[address]: Chema Matamoros MD 2-DIMENSIONAL: YES M.MODE: YES DOPPLER: YES COLOR FLOW: YES TDS: NO PORTABLE: NO DEFINITY: NO BUBBLE STUDY: NO DIAGNOSIS: CHEST PAIN CARDIAC HISTORY: CATHERIZATION: NO SURGERY: NO PROSTHETIC VALVE: NO PACEMAKER: NO MEASUREMENTS (cm) DIASTOLIC (NORMALS) SYSTOLIC (NORMALS) IVSd 0.9 (0.6-1.2) LA Diam 2.9 (1.9-4.0) LVEF 73% LVIDd 4.5 (3.5-5.7) LVIDs 2.6 (2.0-3.5) %FS 42% LVPWd 0.9 (0.6-1.2) Ao Diam 3.0 (2.0-3.7) 2 DIMENSIONAL ASSESSMENT: RIGHT ATRIUM: NORMAL LEFT ATRIUM: NORMAL RIGHT VENTRICLE: NORMAL LEFT VENTRICLE: NORMAL TRICUSPID VALVE: NORMAL MITRAL VALVE: NORMAL PULMONIC VALVE: NORMAL AORTIC VALVE: NORMAL PERICARDIAL EFFUSION: NONE AORTIC ROOT: NORMAL LEFT VENTRICULAR WALL MOTION: NORMAL. DOPPLER/COLOR FLOW: MILD AORTIC, MITRAL AND TRICUSPID REGURGITATION. NORMAL RIGHT VENTRICULAR SYSTOLIC PRESSURE. COMMENTS: NORMAL 2D ECHO. MILD AORTIC, MITRAL AND TRICUSPID REGURGITATION. TECHNOLOGIST: MICHAEL RENEE
[2018-09-10] MEDS ORDERED: ONDANSETRON 4 MG/2 ML VIAL ONE (12:40)
--- NOTE | 2018-09-10 13:36 | RAD REPORT ---
EXAM DESCRIPTION: NM - Rest Stress Cardiac Imaging - 09/10/2018 1:28 pm CLINICAL HISTORY: Chest pain. COMPARISON: None. TECHNIQUE: The patient was administered approximately 10mCi of Tc 99m Sestamibi prior to resting SPE CT imaging of the heart. The patient was then administered approximately 30 mCi of Tc 99m Sestamibi f ollowing exercise or pharmacologic stress. Multiplanar SPECT images were reviewed. FINDINGS: There is uniformity of radiotracer uptake involving the entire left ventricular myocardiu m on rest and stress images. The left ventricular ejection fraction equals 59% IMPRESSION: Negative for a myocardial perfusion defect
--- NOTE | 2018-09-11 08:25 | TREADPHA ---
DX: CHEST PAIN Date of Study: 09/10/2018 Ht: 5 5 Wt: 112 lb 3.2 oz Consulting Physician: CUATE MEDICATIONS: TYLENOL, XANAX, ASPIRIN, LOVENOX, LOPRESSOR HISTORY: 57 YEAR OLD FEMALE WITH COMPLAINTS OF CHEST PAIN. MEDICAL HISTORY OF HYPERTENSION, LUPUS, DEPRESSION, 3-5 CIGARETTES PER DAY. PHYSICIAL EXAMINATION: RESTING B.P.: 153/86 RESTING H.R.: 72 RESTING EKG: NORMAL PROTOCOL: LEXISCAN EXERCISE TIME: 3:30 B.P. AT PEAK STRESS: 146/84 IMPRESSION: LEXISCAN INJECTED. CARDIOLITE INJECTED PER PROTOCOL. SEE NUCLEAR MEDICINE REPORT. NO SUPRAVENTRICULAR TACHYCARDIA. NO VENTRICULAR TACHYCARDIA. NO PREMATURE VENTRICULAR COMPLEXES. CHEST PAIN 3/10 THROUGHOUT STRESS TEST. ZOFRAN GIVEN AT 12:40 DUE TO NAUSEA. NON DIAGNOSTIC EKG WITH STRESS.
== END 2018-09-10 15:30 | disposition home or self-care (01) ==
LOC: ER 18:51 → ERHOLD 09-10 00:17 → 4TH 09-10 01:12
PROVIDERS: ADMIT Hospitalist; ATTEND Hospitalist
DX: R07.9 Chest pain, unspecified (principal); F41.8 Other specified anxiety disorders; I73.00 Raynaud's syndrome without gangrene; I10 Essential (primary) hypertension; G25.81 Restless legs syndrome; F17.210 Nicotine dependence, cigarettes, uncomplicated
CPT/HCPCS: 36415; 78452; 80048; 80061; 80076; 81003; 83735; 83880; 84484; 85025; 85610; 93005; 93017; 93306; 96361; 96374; 99285; A9500; G0378; J1650; J2270; J2405; J2785; J7030